=== PATIENT | male | born 1940 | race Caucasian/White ===

== ENCOUNTER → 2018-01-18 | Outpatient (REF) | payer MEDICARE ==
[~2018-01-18] MED LIST: HYDR-4309 PO; LORA-1455 PO
[2018-01-18 18:39] LABS: PLATELET COUNT, AUTOMATED 226 K/uL (150-450)
== END ==
PROVIDERS: ATTEND Physician Assistant Medical
DX: L97.509 Non-pressure chronic ulcer of other part of unspecified foot with unspecified severity (principal)
CPT/HCPCS: 82040; 82247; 82310; 82374; 82435; 82565; 82947; 83036; 84075; 84132; 84155; 84295; 84450; 84460; 84520; 85025; 85651; 86140

== ENCOUNTER 2018-03-07 10:00 | Outpatient (RCR) | payer MEDICARE ==
--- NOTE | 2018-01-23 15:58 | PT INITIAL EVALUATION ---
MEDICAL DIAGNOSIS: R) heel ulcer TREATMENT DIAGNOSIS: R) medial, plantar heel ulcer DATE OF ONSET: 01/21/18 SUBJECTIVE: The patient presents today with his son and a friend. He reports that he noticed the wound on his R) heel "3 days ago" and was then seen by Dr. Whitman. The patient has documentation of a R) heel x-ray completed on 01/18/18, so it is unclear as to the actual timeline of the current wound. The patient is unsure of how he sustained the wound, but does report sitting on his 4WW seat and propelling himself with his feet. The wound is currently covered with a bordered gauze dressing. REHAB PROBLEM LIST: Increased Pain, Open Wound PREVIOUS MEDICAL HISTORY: Pt reports no PMH, x-ray report from 01/18/18 indicates no signs of bony involvement OBJECTIVE: Sensation: Intact light touch sensation Other Objective Findings: Circumferential Measurements: R) calf: 31 cm R) ankle, superior to malleolus: 24.5 cm Wound Measurements: 0.8 cm L x 0.8 cm W x 0.2 cm D ASSESSMENT: Patient presents with a small ulcer on the medial portion of the R) plantar heel. Wound base demonstrates 95% slough with a small portion of darkened tissue present in the middle of wound base. The periwound skin demonstrates mild maceration. Firm wound margins palpated with tweezers. PT completed conservative, selective debridement of non-viable tissue and slough with tweezers to the depth of the subcutaneous tissue. Pt reports increased pain with debridement and therefore very little debridement was tolerated. PT cleansed the wound with sterile saline and gauze and then placed calcium alginate over the wound base followed by a silicone bordered dressing to assist with autolytic debridement. No s/s of infection present at this time. The patient will benefit from skilled PT wound care to include sharps debridement as well as advanced wound care product selection and application in order to facilitate wound healing and minimize risk of infection. The patient will return for f/u visit in 1 week. Short Term Goals 1: Pt to maintain clean, dry and intact dressing between wound care visits. 2: Wound base to demonstrate 100% granulation tissue with no s/s of infection. 3: Wound to gradually epithelialize from the edges inward and demonstrate full closure. 4: Pt to obtain proper offloading footwear as necessary to adequately offload the wound and facilitate wound healing. Patient's Goals: Wound healing PLAN: Patient to be seen for skilled PT wound care to include sharps debridement as well as advanced wound care product selection and application in order to facilitate wound healing and minimize risk of infection 1x/Week for up to 90 days. Thank you for this referral. If you have any questions, comments, or concerns about this report or plan, please contact me at . Linda Ferrera, PT, DPT [facility]
--- NOTE | 2018-03-07 14:42 | PT PLAN OF CARE ---
Physician: Dr. Whitman Patient is being seen: Eduardo Resendez Therapist: Linda Ferrera, PT, DPT Medical Diagnosis: R) heel ulcer Treatment Diagnosis: R) medial, plantar heel ulcer Date of Onset: 01/21/18 Date of Initial Evaluation: 01/23/18 Date patient was last seen: 03/07/18 Number of treatments: 5 Number of cancellations/No shows: 2 INTERVENTIONS: The patient was seen for skilled PT wound care to include conservative, selective sharps debridement as well as advanced wound care product selection and application. PT also provided education on the importance of proper foot maintenance to reduce risk of wound recurrence. GOALS: (all met) 1: Pt to maintain clean, dry and intact dressing between wound care visits. 2: Wound base to demonstrate 100% granulation tissue with no s/s of infection. 3: Wound to gradually epithelialize from the edges inward and demonstrate full closure. 4: Pt to obtain proper offloading footwear as necessary to adequately offload the wound and facilitate wound healing. (not needed) PATIENT'S GOAL: Wound Healing Status of Patient's Goals: Met Patient Compliance: Fair Prognosis: Good Reasons for continuing therapy: None at this time. Wound demonstrates 100% epithelization with no s/s of infection. Pt will be discharged from skilled PT wound care services. Thank you for this referral. If you have any questions, comments, or concerns about this report or plan, please contact me at . Linda Ferrera, PT, DPT [facility]
== END 2018-03-07 14:09 | disposition home or self-care (01) ==
LOC: PT 10:00
PROVIDERS: ATTEND Podiatrist Foot & Ankle Surgery
DX: L97.512 Non-pressure chronic ulcer of other part of right foot with fat layer exposed (principal)
CPT/HCPCS: 97161

== ENCOUNTER 2019-02-18 16:20 | Inpatient (IN) | payer MEDICARE ==
--- NOTE | 2019-02-18 16:31 | ER Report ---
History and Physical Time Seen By MD: 16:27 HPI/ROS CHIEF COMPLAINT: Exertional dyspnea HISTORY OF PRESENT ILLNESS: Patient is an 78-year-old male here with complaints of exertional dyspnea 3 days. Patient was seen by his family worker shortly prior to arrival and was found to be visibly short of breath especially with exertion. Patient is reportedly healthy at baseline, denies history of smoking, takes no medications. Patient is afebrile, tachypneic, somnolent which is a change from his baseline per family worker who is at bedside. REVIEW OF SYSTEMS: Constitutional: No fever, no chills. Eyes: No discharge. ENT: No sore throat. Cardiovascular: No chest pain, no palpitations. Respiratory: No cough, + significant exertional shortness of breath. Gastrointestinal: No abdominal pain, no vomiting. Genitourinary: No hematuria. Musculoskeletal: No back pain. Skin: No rashes. Neurological: No headache.+ Somnolent Allergies: Coded Allergies: No Known Drug Allergies (Unverified , 02/18/19) Home Meds Active Scripts Hydrocodone Bit/Acetaminophen (NORCO 5-325 TABLET) 1 Each Tablet, 1 EACH PO Q4-6H PRN for PAIN, #12 TAB Prov:BINTA JONES PREVENTIVE MEDICINE OFFICER 11/25/15 Lorazepam (ATIVAN) 0.5 Mg Tablet, 0.5 MG PO Q4-6H PRN for MUSCLE SPASMS, #12 TAB Prov:BINTA JONES PREVENTIVE MEDICINE OFFICER 11/25/15 Hx Smoking: No Smoking Status: Never Smoker Constitutional Vital Sign - Last 24 Hours 02/18/19 02/18/19 02/18/19 02/18/19 16:23 16:23 16:23 16:25 Temp 98.4 Pulse 71 70 Resp 28 23 B/P (MAP) 133/94 133/94 (107) Pulse Ox 83 88 O2 Delivery Room Air O2 Flow Rate 3.0 02/18/19 02/18/19 02/18/19 02/18/19 16:30 16:35 16:40 16:55 Pulse 70 73 67 69 Resp 26 28 24 26 Pulse Ox 91 92 91 02/18/19 02/18/19 02/18/19 16:56 17:00 17:59 Pulse 68 Resp 25 14 B/P (MAP) 108/92 (97) 122/95 (104) 92/64 (73) Pulse Ox 87 92 O2 Delivery Nasal Cannula O2 Flow Rate 4 Physical Exam General Appearance: Patient is somnolent, increased effort to breathe, moving all extremities. Eyes: Pupils equal and round no pallor or injection. ENT, Mouth: Mucous membranes are moist. Respiratory: Diminished breath sounds in left lung especially at the base, tachypnea Cardiovascular: Regular rate and rhythm. Gastrointestinal: Abdomen is soft and non tender, no masses, bowel sounds normal. Neurological: Somnolent, moving all extremities, cranial nerves intact Skin: Warm and dry, no rashes. Musculoskeletal: Neck is supple non tender. Extremities are nontender, nonswollen and have full range of motion. DIFFERENTIAL DIAGNOSIS: After history and physical exam differential diagnosis was considered for shortness of breath including but not limited to pulmonary infectious process, COPD, asthma, pulmonary embolus and congestive heart failure. Medical Decision Making Data Points Result Diagram: 02/18/19 1625 02/18/19 1625 Laboratory Hematology Test 02/18/19 16:25 White Blood Count 9.8 k/uL (4.5-11.0) Red Blood Count 5.06 M/uL (4.00-5.60) Hemoglobin 15.9 g/dL (14.0-18.0) Hematocrit 46.5 % (42.0-52.0) Mean Corpuscular Volume 92.0 fL (80.0-96.0) Mean Corpuscular Hemoglobin 31.5 pg (26.0-33.0) Mean Corpuscular Hemoglobin Concent 34.3 g/dL (32.0-36.0) Red Cell Distribution Width 13.5 % (11.5-14.5) Platelet Count 245 K/uL (150-450) Mean Platelet Volume 8.4 fL (7.2-11.1) Neutrophils (%) (Auto) 61.5 % (39.4-72.5) Lymphocytes (%) (Auto) 25.7 % (17.6-49.6) Monocytes (%) (Auto) 10.5 % (4.1-12.4) Eosinophils (%) (Auto) 1.5 % (0.4-6.7) Basophils (%) (Auto) 0.8 % (0.3-1.4) Nucleated RBC Relative Count (auto) 0.1 /100WBC Neutrophils # (Auto) 6.0 K/uL (2.0-7.4) Lymphocytes # (Auto) 2.5 K/uL (1.3-3.6) Monocytes # (Auto) 1.0 K/uL (0.3-1.0) Eosinophils # (Auto) 0.2 K/uL (0.0-0.5) Basophils # (Auto) 0.1 K/uL (0.0-0.1) Nucleated RBC Absolute Count (auto) 0.01 K/uL Chemistry Test 02/18/19 16:25 Sodium Level 140 mmol/L (137-145) Potassium Level 3.8 mmol/L (3.5-5.0) Chloride Level 110 mmol/L (98-107) Carbon Dioxide Level 21 mmol/L (22-30) Blood Urea Nitrogen 32 mg/dl (9-21) Creatinine 1.10 mg/dl (0.66-1.25) Glomerular Filtration Rate Calc > 60.0 Random Glucose 94 mg/dl (75-110) Lactate 1.3 mmol/L (0.7-2.1) Calcium Level 10.0 mg/dl (8.4-10.2) Total Bilirubin 0.8 mg/dl (0.2-1.3) Aspartate Amino Transf (AST/SGOT) 26 U/L (0-35) Alanine Aminotransferase (ALT/SGPT) 29 U/L (0-56) Alkaline Phosphatase 95 U/L (0-126) Troponin I 0.016 ng/ml B-Type Natriuretic Peptide 75 pg/ml (0-100) Total Protein 7.4 g/dl (6.3-8.2) Albumin 4.1 g/dl (3.5-5.0) Coagulation Test 02/18/19 16:25 Prothrombin Time 13.4 seconds (12.0-14.4) Prothromb Time International Ratio 1.02 Activated Partial Thromboplast Time 30 seconds (23-35) EKG/Imaging Imaging PATIENT NAME: Eduardo Resendez : 1940 MR: [id number] V: [id number] EXAM DATE: ORDERING PHYSICIAN: SKY SANCHEZ TECHNOLOGIST: Location: [facility] [place] Patient: Eduardo Resendez : 1940 Visit/Account:[id number] Date of Sevice: 02/18/2019 Exam type: CHEST SINGLE AP History: RESP DISTRESS Comparison: None. Findings: There is a large left-sided pneumothorax, measuring at least 60% with a mild [id number] mediastinal shift concerning for tension. The left main bronchus does not appear well aerated which may in part be related to extrinsic mass effect or possibly an intraluminal lesion. There Is airspace consolidation the medial left lower lobe likely atelectasis. Mild interstitial prominence is seen throughout the lungs. The cardiac silhouette is normal IMPRESSION: 1. Large left-sided pneumothorax measuring at least 60% with mild left right midline shift concerning for tension pneumothorax. Small amount of airspace consolidation in the medial left lower lobe, likely atelectasis Very little air is identified in the left main bronchus. This could be related to extrinsic mass effect or possibly an intraluminal lesion. CT the chest is recommended. Results were called to SKY SANCHEZ at 02/18/2019 5:02 PM. Report Dictated By: Inga Ferguson MD at 02/18/2019 5:01 PM Report E-Signed By: Inga Ferguson MD at 02/18/2019 5:07 PM PATIENT NAME: Eduardo Resendez : 1940 MR: [id number] V: [id number] EXAM DATE: ORDERING PHYSICIAN: SKY SANCHEZ TECHNOLOGIST: Location: [facility] [place] Patient: Eudardo Resendez : 1940 Visit/Account:[id number] Date of Sevice: 02/18/2019 EXAMINATION: Head CT without intravenous contrast HISTORY: TECHNIQUE: Contiguous axial images were obtained from the skull base to the vertex without intravenous contrast. Sagittal and coronal reformatted images are also submitted. Dose Lowering Technique One of the following dose optimization techniques was utilized in the performance of this exam: Automated exposure control; adjustment of the mA and/or kV according to the patient's size; or use of an iterative rec onstruction technique. Specific details can be referenced in the facility's radiology CT exam operational policy. COMPARISON: None. FINDINGS: Brain volume: There is moderate diffuse central cortical atrophy present Ventricles: Moderate central atrophy Acute ischemic changes: None. Hemorrhage: None. Masses / edema: None. Bettencourt-white: Negative. White matter: Normal. Vessels: There calcifications in the carotid siphons and the vertebral arteries and basilar artery Extra-axial: There appear to be several tiny droplets of air in the Calvarium / scalp: Negative. Skull base / visualized face: Negative. Visualized sinuses / orbits: There is soft tissue density material in the posterior ethmoid air cells on the right. Soft tissue density material also noted in the posterior left-sided the nasal vault. There are copious secretions within the nasopharynx which are incompletely imaged IMPRESSION: There are copious secretions within the nasopharynx which are incompletely imaged Small amount of abnormal soft tissue density material within the posterior left nasal vault and also in the posterior right ethmoid air cells Moderate diffuse central cortical atrophy Report Dictated By: Inga Ferguson MD at 02/18/2019 5:09 PM Report E-Signed By: Inga Ferguson MD at 02/18/2019 5:22 PM WSN:[email or web address] ED Course/Re-evaluation ED Course Patient is an 78-year-old male here with complaints of increasing shortness balbir th especially with exertion, diminished breath sounds in the left lung patiño. Patient was found to have a large left pneumothorax, borderline tension. I discussed the need to place a chest tube with the patient and the patient's family worker and the patient voiced understanding. A thoravent was placed in the left upper chest however to cannula kinked so this was replaced with another thora-Vent with positive evacuation of air. Device was connected to an atrium. Follow-up chest x-ray showed significant reexpansion of the left lung. I discussed the patient with Dr. Matias the surgery who accepted the patient to his service. CT imaging of the chest was completed to evaluate for the etiology of the pneumothorax as there is no history of trauma or history of malignancy. Patient was given ketamine, Versed, fentanyl for sedation for the procedure. Patient was hemodynamically stable at time of admission. Procedure Thoravent Placement: Left-sided pneumothorax was identified. Patient was cleaned using chlorhexidine, and 11 blade was used to make the skin surface, cannula intracoronary advancement to the thoracic cavity. A thoravent was placed in the left upper chest however to cannula kinked so this was replaced with another thora-Vent with positive evacuation of air. Device was connected to an atrium. Patient tolerated procedure well. Patient was sedated for this procedure using ketamine, fentanyl, Versed. Respiratory effort improved significantly. Decision to Disposition Date: Feb 18, 2019 Decision to Disposition Time: 18:03 Depart Departure Latest Vital Signs Vital Signs Date Time Temp Pulse Resp B/P (MAP) Pulse Ox O2 Delivery O2 Flow Rate FiO2 02/18/19 17:59 14 92/64 (73) 92 Nasal Cannula 4 02/18/19 17:00 68 02/18/19 16:23 98.4 Impression: Primary Impression: Pneumothorax Condition: Improved Disposition: Admitted from ER SKY SANCHEZ DO Feb 18, 2019 16:31
[2019-02-18 16:47] LABS: PLATELET COUNT, AUTOMATED 245 K/uL (150-450)
[2019-02-18 16:56] LABS: INR 1.02
[2019-02-18] MEDS ORDERED: fentaNYL CITR 100 MCG/2 ML AMP IVP ONE (17:15)
[2019-02-18] MEDS ORDERED: MIDAZOLAM 10 MG/2 ML VIAL IVP ONE (17:15)
[2019-02-18] MEDS ORDERED: KETAMINE HCL 500 MG/5 ML VIAL IVP ONE (17:15)
--- NOTE | 2019-02-18 17:15 | RADIOLOGY IMAGING REPORT ---
FACILITY: [facility] [place] PATIENT NAME: Eduardo Resendez : 1940 MR: [id number] V: [id number] EXAM DATE: ORDERING PHYSICIAN: SKY SANCHEZ TECHNOLOGIST: Location: [facility] Patient: Eduardo Resendez : 1940 Visit/Account:[id number] Date of Sevice: 02/18/2019 Exam type: CHEST SINGLE AP History: RESP DISTRESS Comparison: None. Findings: There is a large left-sided pneumothorax, measuring at least 60% with a mild [id number] mediastina l shift concerning for tension. The left main bronchus does not appear well aerated which may in par t be related to extrinsic mass effect or possibly an intraluminal lesion. There Is airspace consolid ation the medial left lower lobe likely atelectasis. Mild interstitial prominence is seen throughout the lungs. The cardiac silhouette is normal IMPRESSION: 1. Large left-sided pneumothorax measuring at least 60% with mild left right midline shift concernin g for tension pneumothorax. Small amount of airspace consolidation in the medial left lower lobe, likely atelectasis Very little air is identified in the left main bronchus. This could be related to extrinsic mass eff ect or possibly an intraluminal lesion. CT the chest is recommended. Results were called to SKY SANCHEZ at 02/18/2019 5:02 PM. Report Dictated By: Inga Ferguson MD at 02/18/2019 5:01 PM Report E-Signed By: Inga Ferguson MD at 02/18/2019 5:07 PM WSN:[email or web address]
--- NOTE | 2019-02-18 17:29 | RADIOLOGY IMAGING REPORT ---
[place] [facility] [place]IENT NAME: Eduardo Resendez : 1940 MR: [id number] V: [id number] EXAM DATE: ORDERING PHYSICIAN: SKY SANCHEZ TECHNOLOGIST: Location: [facility] Patient: Eduardo Resendez : 1940 Visit/Account:[id number] Date of Sevice: 02/18/2019 EXAMINATION: Head CT without intravenous contrast HISTORY: TECHNIQUE: Contiguous axial images were obtained from the skull base to the vertex without intraven ous contrast. Sagittal and coronal reformatted images are also submitted. Dose Lowering Technique One of the following dose optimization techniques was utilized in the performance of this exam: Autom ated exposure control; adjustment of the mA and/or kV according to the patient's size; or use of an i terative reconstruction technique. Specific details can be referenced in the facility's radiology C T exam operational policy. COMPARISON: None. FINDINGS: Brain volume: There is moderate diffuse central cortical atrophy present Ventricles: Moderate central atrophy Acute ischemic changes: None. Hemorrhage: None. Masses / edema: None. Bettencourt-white: Negative. White matter: Normal. Vessels: There calcifications in the carotid siphons and the vertebral arteries and basilar artery Extra-axial: There appear to be several tiny droplets of air in the Calvarium / scalp: Negative. Skull base / visualized face: Negative. Visualized sinuses / orbits: There is soft tissue density material in the posterior ethmoid air cell s on the right. Soft tissue density material also noted in the posterior left-sided the nasal vault. There are copious secretions within the nasopharynx which are incompletely imaged IMPRESSION: There are copious secretions within the nasopharynx which are incompletely imaged Small amount of abnormal soft tissue density material within the posterior left nasal vault and also in the posterior right ethmoid air cells Moderate diffuse central cortical atrophy Report Dictated By: Inga Ferguson MD at 02/18/2019 5:09 PM Report E-Signed By: Inga Ferguson MD at 02/18/2019 5:22 PM WSN:[email or web address]
[2019-02-18] MEDS ORDERED: NS(*) 0.9% 1000 ML BAG 1,000 ML IV ONE (18:05)
[2019-02-18] MEDS ORDERED: NS(*) 0.9% 50 ML BAG 50 ML ONE (18:09)
[2019-02-18] MEDS ORDERED: IOPAMIDOL 76% 100 ML INFUS BTL 100 ML ONE (18:09)
--- NOTE | 2019-02-18 18:12 | RADIOLOGY IMAGING REPORT ---
FACILITY: [facility] PATIENT NAME: Eduardo Resendez : 1940 MR: [id number] V: [id number] EXAM DATE: ORDERING PHYSICIAN: SKY SANCHEZ TECHNOLOGIST: Location: [facility] Patient: Eduardo Resendez : 1940 Visit/Account:[id number] Date of Sevice: 02/18/2019 ADDENDUM #1 ADDENDUM: IMPRESSION: 1. Left pneumothorax continues to expand, now with tension despite chest tube Report Dictated By: Cristhian Oneil MD at 02/18/2019 6:38 PM Report E-Signed By: Cristhian Oneil MD at 02/18/2019 6:38 PM ORIGINAL REPORT CHEST SINGLE AP Indication: chest tube placement Comparison: 02/18/2019 4:50 PM Findings: Interval placement of a left-sided chest tube. Cardiomediastinal silhouette: Increasing right lateralization of the mediastinum. Lungs: Decreased aeration of the right lung with compressive atelectatic changes. Advanced emphysemat ous changes on the left. Left pneumothorax continues to expand, now attention despite chest tube. IMPRESSION: 1. Left pneumothorax continues to expand, now attention despite chest tube Report Dictated By: Cristhian Oneil MD at 02/18/2019 6:03 PM Report E-Signed By: Cristhian Oneil MD at 02/18/2019 6:05 PM WSN:[id number]
--- NOTE | 2019-02-18 18:51 | RADIOLOGY IMAGING REPORT ---
FACILITY: [facility] PATIENT NAME: Eduardo Resendez : 1940 MR: [id number] V: [id number] EXAM DATE: ORDERING PHYSICIAN: SKY SANCHEZ TECHNOLOGIST: Location: [facility] Patient: Eduardo Resendez : 1940 Visit/Account:[id number] Date of Sevice: 02/18/2019 CT CTA CHEST W & W/O CON HISTORY: Pneumothorax TECHNIQUE: CTA chest with intravenous contrast attention to pulmonary arteries. Sagittal, coronal a nd slab 3D MIP coronal reconstructed images were also created for further evaluation and interpretati on. One of the following dose optimization techniques was utilized in the performance of this exam: Autom ated exposure control; adjustment of the mA and/or kV according to the patient's size; or use of an i terative reconstruction technique. Specific details can be referenced in the facility's radiology CT exam operational policy. CONTRAST: 75 mL Isovue 370 COMPARISON: Radiograph 02/18/2019 FINDINGS: Lungs:: Left anterior approach intercostal chest tube tip abuts the lateral wall of the mediastinum. It does not appear to transverse the visceral pleura. The lungs are extremely emphysematous. There a re traction adhesive changes to the left parietal pleura. Mediastinal shift is subjectively resolved. Heart, milad and aorta:: Heart is not enlarged. Great vessels follow normal course and caliber. Pulmonary arteries:Opacification of pulmonary arteries is excellent. There are no filling defects enrique ntified within the pulmonary arteries. Pleura:: Small to moderate left pneumothorax. No pleural fluid Chest wall: Emphysematous changes overlie the left chest wall extending to the base of the neck Visualized upper abdomen: Fatty pancreas Bones: Negative. IMPRESSION: Left pneumothorax with chest tube in place. Tension appears to be resolving when compared to most rec ent radiograph. Chest tube projects within the intrapleural space at those however about the soft tis sues of the mediastinum and does not appear to transgress visceral pleura. No pulmonary embolism Severely emphysematous lungs Report Dictated By: Cristhian Oneil MD at 02/18/2019 6:37 PM Report E-Signed By: Cristhian Oneil MD at 02/18/2019 6:43 PM WSN:[id number]
--- NOTE | 2019-02-18 18:58 | EKG ---
[place] [facility] [place] ROSEMARIE LEON : [id number] MR: [id number] V: [id number] EXAM DATE: ORDERING PHYSICIAN: SKY SANCHEZ TECHNOLOGIST: DEBBI Test Reason : SOB Blood Pressure : / mmHG Vent. Rate : 068 BPM Atrial Rate : 068 BPM P-R Int : 156 ms QRS Dur : 074 ms QT Int : 440 ms P-R-T Axes : 066 033 069 degrees QTc Int : 467 ms Normal sinus rhythm Normal ECG No previous ECGs available Confirmed by SURY ORDOÑEZ ([id number]) on 02/18/2019 8:09:51 PM Referred By: LAURA Confirmed By:SURY ORDOÑEZ
[2019-02-18] MEDS ORDERED: ACETAMINOPHEN 325 MG TAB PO PRN (20:55)
[2019-02-18] MEDS ORDERED: traMADol 50 MG TAB PO PRN (20:55)
[2019-02-18 22:55] VITALS: BP 121/85
[2019-02-19 03:24] VITALS: BP 119/65
--- NOTE | 2019-02-19 06:53 | RADIOLOGY IMAGING REPORT ---
FACILITY: [facility] PATIENT NAME: Eduardo Resendez : 1940 MR: [id number] V: [id number] EXAM DATE: ORDERING PHYSICIAN: ARIELLE PHILIP TECHNOLOGIST: Location: [facility] [place] Patient: Eduardo Resendez : 1940 Visit/Account:[id number] Date of Sevice: 02/19/2019 CHEST SINGLE AP Additional pertinent History: None COMPARISON STUDIES: 02/18/2019 FINDINGS: Support lines and catheters: Small bore chest tube seen in the medial aspect of the left midlung. Lungs and Pleura: When compared to the previous chest x-ray there is been continued expansion of th e left lung with just a small 6 mm pneumothorax seen along the left apex. There is a generalized incr eased interstitial lung change in the reexpanded left upper lung. Heart and vasculature: Negative. Kita and Mediastinum: Negative. Bones and Chest wall: Subcutaneous emphysematous changes noted along the left chest wall. Upper Abdomen: Negative. IMPRESSION: 1. Reexpansion of the left lung with just minimal apical pneumothorax. Slight increased interstitial lung change in the left upper lung which may be related to reexpansion pulmonary edema. Subcutaneous emphysematous changes along the left chest wall. Report Dictated By: Nelson Mccain MD at 02/19/2019 6:35 AM Report E-Signed By: Nelson Mccain MD at 02/19/2019 6:45 AM WSN:[id number]
[2019-02-19 07:07] VITALS: BP 123/66
--- NOTE | 2019-02-19 07:23 | Gen Surgery History & Physical ---
History of Present Illness Chief Complaint sob, chest pain History of Present Illness 78 yo m presented to er with sob and chest pain. sob with exertion for 3 days. found to have pneumothorax and catheter placed. no h/o cigs. no previous pneu mothorax. now feels fine. no sob. History Home Meds Discontinued Scripts Hydrocodone Bit/Acetaminophen (NORCO 5-325 TABLET) 1 Each Tablet, 1 EACH PO Q4- 6H PRN for PAIN, #12 TAB Prov:BINTA JONES NEONATAL PEDIATRIC NURSE 11/25/15 Lorazepam (ATIVAN) 0.5 Mg Tablet, 0.5 MG PO Q4-6H PRN for MUSCLE SPASMS, #12 TAB Prov:BINTA JONES NEONATAL PEDIATRIC NURSE 11/25/15 Allergies: Coded Allergies: No Known Drug Allergies (Unverified , 02/18/19) Review of Systems Constitutional: Other (per hpi) Exam General Appearance: Alert, Awake, No Acute Distress, Afebrile Neuro: No Gross deficits Eyes: Other (per, eomi) Cardiovascular: Other (reg rate) Respiratory: No Respiratory Distress GI: Other (abd soft) Extremities: Other (scds) Integumentary: Skin Intact without Lesion / Mass Psych: Alert & Oriented X3, Appropriate Mood & Affect Medical Decision Making Data Points Result Diagram: 02/18/19 1625 02/18/19 1625 Assessment and Plan Problems: (1) Pneumothorax Status: Acute Assessment & Plan: 02/19/19: ptx resolving. cont on suction for now. oob to chair. reg diet. Venous Thromboembolism Antithrombotics Is Pt On Any Antithrombotics?: No ARIELLE PHILIP Feb 19, 2019 07:23
[2019-02-19] MEDS: NS(*) 0.9% 1000 ML BAG 1,000 ML IV PRN ×2 (07:34→16:54)
[2019-02-19 11:03] VITALS: BP 98/61
[2019-02-19 15:56] VITALS: BP 115/60
[2019-02-19 19:46] VITALS: BP 111/75
[2019-02-19 23:59] VITALS: BP 123/78
[2019-02-20 03:21] VITALS: BP 134/74
--- NOTE | 2019-02-20 06:32 | RADIOLOGY IMAGING REPORT ---
FACILITY: [facility] - [place], [place] PATIENT NAME: Eduardo Resendez : 1940 MR: [id number] V: [id number] EXAM DATE: ORDERING PHYSICIAN: ARIELLE PHILIP TECHNOLOGIST: Location: [facility] - [place] Patient: Eduardo Resendez : 1940 Visit/Account:[id number] Date of Sevice: 02/20/2019 Portable chest: Indication: Follow-up evaluation of pneumothorax. Technique: A single frontal film was obtained. Comparison: 02/19/2019 Lines and tubes: Unchanged. Skeletal and soft tissue structures: There is persistent subcutaneous emphysema in the left chest wal l. Heart and mediastinum: Within normal limits. Lung patiño: No focal opacity or consolidation. Pleural spaces: There is a persistent tiny left apical pneumothorax. There is no significant effusion . Impression: Persistent tiny left pneumothorax. No significant change. Report Dictated By: Bonifacio Gonsalves MD at 02/20/2019 6:22 AM Report E-Signed By: Bonifacio Gonsalves MD at 02/20/2019 6:24 AM WSN:[id number]
[2019-02-20 06:55] VITALS: BP 133/71
--- NOTE | 2019-02-20 07:39 | General Surgery Progress Note ---
Subjective Progress Notes Subjective doing well. no sob. Physical Exam Vital Signs Date Time Temp Pulse Resp B/P (MAP) Pulse Ox O2 Delivery O2 Flow Rate FiO2 02/20/19 06:55 97.9 50 20 133/71 (91) 96 Nasal Cannula 1.5 Intake and Output 02/20/19 07:03 Intake Total 2127 ml Output Total 28 ml Balance 2099 ml Intake Oral 180 ml IV Total 1947 ml Output Chest Tube Drainage Total 28 ml # Voids 4 # Bowel Movements 2 General Appearance: No Acute Distress Respiratory: No Respiratory Distress Result Diagram: 02/18/19 1625 02/18/19 1625 Assessment and Plan Problems: (1) Pneumothorax Status: Acute Assessment & Plan: 02/19/19: ptx resolving. cont on suction for now. oob to chair. reg diet. 02/20/19: doing well. no increase in ptx on waterseal. will clamp ngt and get xray in 4 hrs. hliv. Exam Sepsis Risk: No Definite Risk ARIELLE PHILIP Feb 20, 2019 07:39
--- NOTE | 2019-02-20 09:36 | NUR ---
Physical Therapy Impression Pt is fairly resistant to providing any information or participating in dressing skill check etc. Pt does have a CG, as noted in chart and she arrived during treatment to bring pt a breakfast sandwich. Pt became somewhat agitated with gait belt placement and with request to place sandwich on table in order to ambulate. Pt then hid sandwich under a bag before being agreeable to ambulate with therapy. For transfers, Min assist of OT to manage lines and W/C follow, Mod assist by PT for sit to stand as pt is fairly retropulsive initially and did not scoot forward in chair prior to attempting to stand. During ambulation pt indicates that he does have a walker at home and describes it possibly as a 4WW with seat. Pt tends to vear toward the right and brush along the R) wall during gait trng in hallway. When an obstacle is encountered on the R), pt does self correct to avoid this, but not until he is nearly in contact with it. Pt requires guidance and redirection due to possible cognitive limitations in order to path find his way back to the room and complete a 180 degree turn in hallway. Pt was then encouraged to don/doff clothing, either don his own pants or don/doff current house slippers and socks in order to evaluate his safety, balance and indep with this skill. Pt refused to allow PT/OT to observe this skill but then attempted to get them and put pants on after therapy departure. Pt was left with MILK WAGON DRIVER in room and therapy providing report to nursing staff. Recommend BUSINESS PLANNING MANAGER evaluation for any potential cognitive limitations. Pt became rather agitated at times with questions from PT thus a full environmental discussion was not completed. From a functional mobility stand point, pt would certainly benefit from further rehab to address strength, balance and safety with ADL'. Recommend supported living environment for improved safety, such as assisted living with [facility] services. Defer to BUSINESS PLANNING MANAGER for recommendations regarding memory care or traditional DE. Physical Therapy Goals 1. Pt to be Mod indep for sit to/from stand transfers 2. Pt to be Mod indep for sit to/from supine and bed mobility 3. Pt to ambulate 100' with least restrictive device and SBA/Mod indep Patient's Goals
--- NOTE | 2019-02-20 11:52 | NUR ---
Occupational Therapy Impression Pt resistant to providing much history on PLOF, becoming agitated when encouraged to address possible services needed. Mod Ax1 sit<>stand with cues for sequencing. Min A ambulation with RW and w/c follow (see PT note). Pt adamantly refusing engagement in ADL assessment (dressing/toileting). Occasional cues required for safety and sequencing. Recommend speech evaluation for cognition. Pt would likely benefit from supervised living (SKILLED NURSING) and for continued strengthening. Occupational Therapy Goals 1) Pt will be SBA UB/LB dressing. 2) Pt will be SBA toilet task. 3) Pt will be SBA grooming/hygiene standing. Patient's Goal
[2019-02-20 12:48] VITALS: BP 126/69
--- NOTE | 2019-02-20 14:16 | RADIOLOGY IMAGING REPORT ---
[facility] PATIENT NAME: Eduardo Resendez : 1940 MR: [id number] V: [id number] EXAM DATE: ORDERING PHYSICIAN: ARIELLE PHILIP TECHNOLOGIST: Location: [facility] - [place] Patient: Eduardo Resendez : 1940 Visit/Account:[id number] Date of Sevice: 02/20/2019 Single view of the chest Indication: PTX Comparison: X-ray examination of the chest from earlier today. Findings: Similar amount of subcutaneous emphysema is seen on the left are left-sided chest tube is seen. Ther e is a small/tiny left apical pneumothorax appreciated, unchanged. Subtle blunting is seen of left c ostophrenic sulcus indicative of layering fluid or blood. No acute bony finding. IMPRESSION: 1. Compared to earlier examination, no significant change with tiny left apical pneumothorax. Left s ided chest tube in place. Report Dictated By: Harris Hayes MD at 02/20/2019 2:05 PM Report E-Signed By: Harris Hayes MD at 02/20/2019 2:07 PM WSN:[id number]
[2019-02-20 15:46] VITALS: BP 146/81
[2019-02-20 19:42] VITALS: BP 137/97
[2019-02-21 07:22] VITALS: BP 131/78
--- NOTE | 2019-02-21 07:45 | General Surgery Progress Note ---
Subjective Progress Notes Subjective no acute events Physical Exam Vital Signs Date Time Temp Pulse Resp B/P (MAP) Pulse Ox O2 Delivery O2 Flow Rate FiO2 02/21/19 07:22 97.8 56 16 131/78 (95) 96 Nasal Cannula 0.5 Intake and Output 02/21/19 07:03 Intake Total 360 ml Output Total 17 ml Balance 343 ml Intake Oral 360 ml Output Chest Tube Drainage Total 17 ml # Voids 5 # Bowel Movements 2 General Appearance: No Acute Distress Respiratory: No Respiratory Distress Result Diagram: 02/18/19 1625 02/18/19 1625 Assessment and Plan Problems: (1) Pneumothorax Status: Acute Assessment & Plan: 02/19/19: ptx resolving. cont on suction for now. oob to chair. reg diet. 02/20/19: doing well. no increase in ptx on waterseal. will clamp ngt and get xray in 4 hrs. hliv. 02/21/19: doing well. no increase in ptx with tube clamped. i removed chest tube. to ecf today. Exam Sepsis Risk: No Definite Risk ARIELLE PHILIP Feb 21, 2019 07:45
--- NOTE | 2019-03-04 07:10 | Hospitalist Depart ---
Discharge Summary Reason for Hosp/Final Diag: (1) Pneumothorax Status: Acute Hospital Course & Plan: 02/19/19: ptx resolving. cont on suction for now. oob to chair. reg diet. 02/20/19: doing well. no increase in ptx on waterseal. will clamp ngt and get xray in 4 hrs. hliv. 02/21/19: doing well. no increase in ptx with tube clamped. i removed chest tube. to ecf today. Departure Weight (Pounds): 175 Condition: Improved Discharge Instructions Home Meds No Active Prescriptions or Reported Meds Diet: Regular Activity: As Tolerated, With Walker Special Instructions: d/c to extended care Venous Thromboembolism Antithrombotics Is Pt On Any Antithrombotics?: No ARIELLE PHILIP Mar 04, 2019 07:10
== END 2019-02-21 10:45 | DRG 201 ==
LOC: ER 16:40 → MED 19:09
PROVIDERS: ADMIT Surgery; ATTEND Surgery
PROC: 0W9B30Z Drainage of Left Pleural Cavity with Drainage Device, Percutaneous Approach (ICD-10-PCS; principal; 2019-02-18)
DX: J93.9 Pneumothorax, unspecified (principal)
CPT/HCPCS: 32554; 70450; 71045; 71275; 82040; 82247; 82310; 82374; 82435; 82565; 82803; 82947; 83605; 83880; 84075; 84132; 84155; 84295; 84450; 84460; 84484; 84520; 85025; 85610; 85730; 87040; 93005; 96361; 96374; 96375; 97162; 97166; 99285; A7048; J2250; J3010; J7030; J7050; Q9967

== ENCOUNTER → 2019-02-18 | Outpatient (CLI) | payer MEDICARE ==
[~2019-02-18] MED LIST changes: -HYDR-4309 PO; +HYDR-653 PO
== END ==
LOC: AMB 15:48
PROVIDERS: ATTEND Nurse Practitioner
DX: R06.02 Shortness of breath (principal)
CPT/HCPCS: A0425; A0427

== ENCOUNTER 2019-02-21 10:45 | Inpatient (IN) | payer MEDICARE ==
[~2019-02-21] VITALS: Ht 177.8 cm; Wt 70.6 kg
[2019-02-21 10:50] VITALS: BP 124/80
[2019-02-21] MEDS ORDERED: ACETAMINOPHEN 325 MG TAB PO PRN (11:05)
[2019-02-21] MEDS ORDERED: traMADol 50 MG TAB PO PRN (11:05)
--- NOTE | 2019-02-21 11:11 | Consultant Pharmacy Review ---
History Instructor Review Medication Review Do All Mecications have a Diag: Yes Pneumococcal Vaccine HX Pneumo Vac ([id number]): No Comments Regarding the Review NO CONCERNS FOR MEDICATIONS AT THIS TIME HE IS ONLY ON TRAMADOL AND ACETAMINOPHEN. WILL ADDRESS PNEUMONIA VACCINE STATUS WITH ECF NURSING. Notified? Notified?: No FAUSTO MONZON Feb 21, 2019 11:11
--- NOTE | 2019-02-21 13:53 | NUR ---
LT101 requested for admission, as pt is applying for Medicaid.
--- NOTE | 2019-02-21 14:02 | NUR ---
Illiteracy, confusion Patient refused many of the admission assessment questions, so some information was provided by his caregiver, Yang Kerr. She believes that patient is illiterate, as she reported that she has cared for him daily for the last two years and he always had her read his mail to him. He appears quite confused to the situation, has told staff that, "I have to meet somebody downstairs," but could not tell us who or for what reason. Yang suggested to us to tell patient that, if he does not cooperate with answering questions or participate with the therapists that we should advise him that we will be reporting this to his son Wilner, who has POA and who is arranging for pt's admission to [facility].
--- NOTE | 2019-02-21 14:08 | NUR ---
Physical Therapy Impression PT ECF eval complete. Pt very resistant to participate in PT interventions, requiring strong encouragement. Pt minimally receptive to PT instruction throughout session. CGA for STS transfers with cues for hand placement. CGA ambulation x150' with RW, and cues for proximity to walker. Pt will benefit from skilled PT services in order to increase tolerance to functional mobility and improve safety prior to d/c to [place]. Physical Therapy Goals 1: Pt to complete bed mobility with Parish 2: Pt to complete transfers with SBA and RW 3: Pt to ambulate 150' with SBA and RW 4: Pt to continuous pickling line pickler object from floor with CGA 5: Pt to ambulate 10' on sloped surface with CGA and RW Patient's Goals
--- NOTE | 2019-02-21 14:48 | OT ECF NOTE ---
Type of Note: Initial Note Primary Medical Diagnosis: Generalized weakness s/p hospital admission for pneumothorax Occupational Therapy Evaluation Date: 02/21/19 SUBJECTIVE: Prior Hospitalization: [facility] 02/18/19-02/21/19 Prior Level of Function: Pt resistant to share details regarding PLOF. Frequently stating "I don't know." Per current staff, pt has a caregiver that assists 1x/day. Pt may have used a 4WW at baseline. Prior Living Status: Senior housing-Son is patient's POA and reports he has arranged for [facility] Community Services: No known needs Home Accessibility: All needs on one level, Walk-in shower Equipment Owned: Rollator Medical Complications/Past Medical History: Please refer to EMR Psychosocial Support: Son resides in [place], is POA and assisting with transition to [facility] Pain Scale (0-10): None reported at time evaluation OBJECTIVE: Strength: MMT: Right Left Shoulder Flexion WFL WFL Elbow Flexion WFL WFL Wrist Extension WFL WFL Straightening Roll Operator WFL WFL (5= normal, 4= good, 3= fair, 2= poor, 1= trace) ROM: Both upper extremities, WFL Sensation: No paraesthesia reported Functional Transfer: Assistive Device: Front wheeled walker, Gait belt Transfer Ability: SBA, CGA. CGA provided due to pt's impulsivity and difficulty redirecting. ADL: Upper body dressing: Assistive device: Upper body dressing ability: N/T Lower body dressing: Assistive device: None Lower body dressing ability: Set-up donning slippers sitting unsupported EOB Toileting: Assistive device: Toileting ability: N/T Grooming/hygiene: Assistive device: Grooming ability: N/T Bathing: Assistive device: Bathing ability: N/T Standardized Assessment: Misha Index of Activities of Daily Livin/20 upon initial evaluation (02/21/19). ASSESSMENT: Mr. Resendez presents to [facility] [place] [place] with generalized weakness s/p hospital admission. He will benefit from skilled OT services to ensure appropriate tolerance for ADLs prior to discharge to [facility]. Problem List/Current Limitations: Generalized weakness Poor safety awareness Decreased attention Decreased initiation Short Term Goals: 1) Pt will be SBA toilet task. 2) Pt will be SBA grooming/hygiene standing. 3) Pt will be Independent with upper body HEP. 4) Pt will be Independent LB dressing. Bottom Stop Attacher Goals: Discharge to supervised living with services Patient Goals: Not addressed Rehabilitation Prognosis: Good Barriers to Discharge: Pt motivation and engagement in tasks PLAN: The patient will benefit from skilled occupational therapy services 5 times per week for 2 weeks including: Ther ex ADL training Safety training Ther act IADL training Transfer training Adaptive equip training Bed mobility Energy conservation Thank you for this referral. If you have any questions, concerns, or comments about this report or plan, please contact me at . Cindy Norris MS, OTR/L Occupational Therapist SRINIVAS
--- NOTE | 2019-02-21 15:19 | PT ECF NOTE ---
Type of Note: Initial Note Primary Medical Diagnosis: Weakness, pneumothorax Physical Therapy Evaluation Date: 02/21/19 SUBJECTIVE: Prior Hospitalization: [facility] 02/18/19-02/21/19 Prior Level of Function: Pt refuses to give any information about PLOF, per EMR and other staff reports, pt was living in Senior Housing and using a walker for mobility. Plan for the pt to d/c to [facility]. Prior Living Status: Senior housing Community Services: No known needs Home Accessibility: All needs on one level Equipment Owned: Rollator Medical Complications/Past Medical History: See EMR Psychosocial Support: Son, "Fuad" is POA Pain Scale (0-10): Pt reports "I don't know" OBJECTIVE: Strength: Pt refused ROM: WFL Sensation: Unknown, pt reports "no" to all inquiries Bed Mobility: Pt up in chair Transfers: CGA with RW Gait: CGA with RW x150' Stairs: NT ASSESSMENT: PT ECF eval complete. Pt very resistant to participate in PT interventions, requiring strong encouragement. Pt minimally receptive to PT instruction throughout session. CGA for STS transfers with cues for hand placement. CGA ambulation x150' with RW, and cues for proximity to walker. Pt will benefit from skilled PT services in order to increase tolerance to functional mobility and improve safety prior to d/c to [facility]. Problem List/Current Limitations: Decreased activity mateo Decreased strength Decreased ROM Decreased balance Poor safety awareness Decreased problem solving Lack of motivation Confusion Short Term Goals: 1: Pt to complete bed mobility with Parish 2: Pt to complete transfers with SBA and RW 3: Pt to ambulate 150' with SBA and RW 4: Pt to leaf size picker object from floor with CGA 5: Pt to ambulate 10' on sloped surface with CGA and RW Medical Records Tech Goals: Pt to d/c to [place] with decreased need of assistance from others. Patient Goals: Non expressed Rehabilitation Prognosis: Fair Barriers for Discharge: Pt very resistant to participation in PT interventions. PLAN: The patient will benefit from skilled physical therapy services 5 times per week for 2 weeks including: Therapeutic Exercise Therapeutic Activities Transfer Training Stair Training Manual Therapy Safety Training Neuromuscular Re-educ. Pt/Caregiver Training Bed Mobility Thank you for this referral. If you have any questions, concerns, or comments about this report or plan, please contact me at . Linda Ferrera, PT, DPT MTDD
[2019-02-21 15:25] VITALS: BP 124/72
--- NOTE | 2019-02-21 15:50 | NUR ---
Cueing Pt needs alot of reminder queing Such as : Washing hands, wiping after using the restroom, keeping the walker close and where he said he wanted to go. Pt does not use pull cord while in restroom. ( I stay close and check frequently)
--- NOTE | 2019-02-21 19:22 | NUR ---
Patient resting in bed voices no c/o of any, just wanting to go to bed refusing any hs cares, call light placed within reach of patient .
[2019-02-22 07:35] VITALS: BP 139/76
--- NOTE | 2019-02-22 11:20 | NUR ---
ST attempted evaluation. The patient was largely uncooperative. He frequently responded with "I don't know" to direct questions and was non-responsive to general comments. Pt used the room's communication board to report that the date was the . However, he did not cooperate with requests for the current month and year, responding with "I don't know" and "you tell me". When provided with a multiple choice option (e.g., "Would you guess it's a summer or winter month?"), the patient responded with, "Ya, it's one of those." Similar exchanges occurred on topics such as his family and personal interests. The patient did report that he lives on only [address] from [facility] which is consistent with the information in his medical record. It was sometimes unclear if the patient did not know the requested information or simply did not want to participate. 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 The patient became increasingly agitated and told the PLANNING LEAD to "Quit asking so many questions." PLANNING LEAD explained to the patient that she and others at the hospital were trying to get to know him a little better so that we could help him get home faster. Patient was asked if he would be willing to work with physical therapy to increase strength, allowing him to return home sooner. The patient responded, "I don't know" and told the PLANNING LEAD to, "Get out of here." When asked if the clinician could come back and see him on Sunday he responded, "No. I won't be here on Sunday." ST will attempt to evaluation the patient again on Sunday or Sunday of next week.
[2019-02-22 14:15] VITALS: BP 113/71
--- NOTE | 2019-02-22 14:58 | Medical Nutrition Therapy ---
Nutrition Anthropometrics Height (Inches): 70 (stated) Weight (Pounds): 155 Weight (Calculated Kilograms): 70.562 Yuan Nutrition Score: Adequate Yuan Nutrition Risk Score: 19 Dietary Referral Nutrition Risk Factors: Nutrition Risk Comment: Pt uncooperative, won't say Physical Findings Physical Appearance: WNR Skin Appearance Skin Appearance: Edema Edema Location Modifier: Both Edema Location: Leg Type of Edema: Degree of Edema: Gastrointestinal Symptoms GI Symtoms: Change in Bowel Pattern Tube Present: Bowel Sounds: Recent Bowel Pattern: Stool Characteristics: Nutritional Diagnosis Nutritional Risk Acuity 3: Fair Appetite Nutritional Acuity: 3-Mild Energy Requirement: 1848 (MSJ) Protein Requirement: 70 (1gm/kg) Fluid Requirement: 1750 (25ml/kg) Diet Type: Diet as Tolerated JASON/REG Nutrition Intervention: Cont diet as ordered, HS snack, Between meal supplement Food Likes: half white bread turkey only sandwich/vanilla ice cream/tater tots Diet Comment To RSA: OFFER NUTR SUPPLMENT Nutrition Monitoring & Eval Nutrition Goals: Eat 75-100% Meal, Drink > 1500 cc/day RD Patient Assessment Time: [address] Assessment Type: RD Assessment Patient Nutrition Acuity: 3-Mild Follow Up Date: Feb 28, 2019 Nutritional Comment: 02/22 Pt admitted s/p npneumothorax. Pt on JASON. Intake average 70% of small portions. Will offer nutr supplment to increase kcal and protein intake. No accurate pre-admit wt. Ht is stated. Alb 4.1, K+ 3.8 Will cont to monitor and encourage intake. IRINA INIGUEZ Feb 22, 2019 14:58
[2019-02-23 08:30] VITALS: BP 148/69
--- NOTE | 2019-02-23 09:49 | General Surgery Progress Note ---
Subjective Progress Notes Subjective pt says he feels fine but wants to go home. Physical Exam Vital Signs Date Time Temp Pulse Resp B/P (MAP) Pulse Ox O2 Delivery O2 Flow Rate FiO2 02/22/19 20:34 92 02/22/19 20:34 Room Air 02/22/19 14:15 98.9 61 26 113/71 (85) 02/22/19 09:56 0.5 Intake and Output 02/23/19 07:03 Intake Total 0 ml Balance 0 ml Intake Oral 0 ml # Voids 9 # Bowel Movements 2 General Appearance: No Acute Distress Chest: Other (wound is clean, no infection) Assessment and Plan Problems: (1) Pneumothorax Status: Acute Assessment & Plan: doing fine, wants to go home keep dressing on wound working on placement ARIELLE PHILIP Feb 23, 2019 09:49
[2019-02-23 16:48] VITALS: BP 116/65
[2019-02-24 08:00] VITALS: BP 146/77
--- NOTE | 2019-02-24 10:57 | NUR ---
Occupational Therapy Impression Pt. lying in bed stating, "get out!" upon OT's arrival. Pt. stating that he just wanted to sleep and "no, I'm not getting up for breakfast!" Pt. refusing participation in all activities. Occupational Therapy Goals 1) Pt will be SBA toilet task. 2) Pt will be SBA grooming/hygiene standing. 3) Pt will be Independent with upper body HEP. 4) Pt will be Independent LB dressing. Patient's Goal
--- NOTE | 2019-02-24 12:12 | NUR ---
Speech Therapy Impression Cognitive linguistic evaluation complete. The patient exhibited improved cooperation vs prior attempt, though he continued to frequently respond with "I don't know" when presented with direct evaluation questions or informal interview prompts. Suspect the pt is attempting to mask underlying deficits, as avoidance behaviors increased in correlation with difficulty of assessment items. It is further suspected that the pt's total score was self- limited by his tendency to avoid completing tasks of relative difficulty. 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 Formal report to follow. Recommend access to 24/7 supervision at discharge, continued HH ST, consideration of memory care in LONG TERM environment.
--- NOTE | 2019-02-24 12:15 | NUR ---
Physical Therapy Impression Pt refused all PT interventions this date. PT educated pt on the importance of continued participation in order to maintain/increase strength prior to transition to FDC. Pt continued to refuse. Physical Therapy Goals 1: Pt to complete bed mobility with Parish 2: Pt to complete transfers with SBA and RW 3: Pt to ambulate 150' with SBA and RW 4: Pt to pick up operator object from floor with CGA 5: Pt to ambulate 10' on sloped surface with CGA and RW Patient's Goals
[2019-02-24 16:19] VITALS: BP 132/87
--- NOTE | 2019-02-24 16:35 | SLP EVALUATION SUMMARY REPORT ---
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 The pt was referred for an ST assessment to analyze cognitive linguistic status secondary to staff concerns re: confusion and possible chronic cognitive decline. Primary Medical Dx: Generalized weakness s/p recent hospital admission for pneumothorax Past medical Hx: refer to medical record Prior Level of Function: The pt was resistant to sharing details regarding PLOF, frequently stating I dont know. Per staff and chart review, pt has a caregiver that provides assistance 1x/day. Son is the pts POA, and reports he is arranging for [facility]. COGNITIVE LINGUISTIC ASSESSMENT Overall Summary: Pt exhibits moderate to severe, widespread cognitive linguistic deficits most notably characterized by reduced information processing, disorientation, and short-term memory deficits. Higher level deficits are also inferred. Etiology may be age-related, with home caregiver reporting concern re: gradual decline in cognitive status over the course of the previous year. Cognitive linguistic assessment was completed at the bedside, including informal measures paired with the Herminio Cognitive Assessment (MoCA), Version 7.2. Pt achieved a total score of 6/25 points administered (26/30=WNL), with 5 points omitted due to inability to complete written portion (home caregiver suspects illiteracy). The pt was generally willing to participate in assessment tasks, but simultaneously appeared to be making an effort to mask underlying deficits. He frequently responded to evaluation questions by stating I dont know. Avoidance behaviors increased in correlation with difficulty of assessment items. It is suspected that the pts total score was self-limited by his tendency to avoid completing tasks of relative difficulty. However, cognitive linguistic impairments also appear moderate to severe. The pt was disoriented to temporal concepts (date, time of day), but acknowledged current location and general reason for hospitalization. He exhibited difficulty sustaining attention and comprehending task instructions, often requiring multiple repetitions prior to providing a response. The pt further exhibited significant difficulty with recall, both immediately and following a brief delay. It was difficult to assess the pts ability to solve functional problems, complete executive functioning tasks, and participate in tasks requiring execution of multi-level instructions. He avoided or declined participation in these activities. At this time, the pt appears to be functioning mildly below baseline from a cognitive-linguistic standpoint. Suspect cognitive decline has been gradual vs acute. Cognitive linguistic deficits may impede safe and efficient completion of ADLs and IADLs, including cooking, management of medications, finances, and scheduling. Skilled ST services are warranted in a subacute rehab setting to continue assessment of cognitive linguistic skills and to provide patient and caregiver instruction in strategies to support identified areas of impairment for safe and successful transition to next level of care. RECOMMENDATIONS 1. ST 3x/wk, 2wks 2. Access to 24/ supervision at discharge, possible consideration of memory care placement at [facility]. [facility] PROGNOSIS: Guarded. Resistant to participated, but motivated to d/c from ECF. PLAN OF CARE Short Term Goals 1. Pt will improve purposeful communication via contribution of 3 relevant comments per topic during participation in reminiscence conversations with staff or family members with min cues for task persistence and redirection as needed. 2. Pt will comprehend and execute single level instructions with min assist to improve participation in functional ADLs. 3. Pt will utilize internal strategies with min cues to support recall of 2/2 items of information embedded within a functional activity. Long-Term Goals 1. The patient will demonstrate functional cognitive communication status for safety and maximized independence upon anticipated d/c DE w/ appropriate access to home and community resources. Thank you for this referral. Please call [phone] to contact with any questions or concerns. Tri Norris M.S., [facility])-GERIATRIC ASSISTANT [*] MTDD
[2019-02-25 07:15] VITALS: BP 121/61
--- NOTE | 2019-02-25 09:31 | NUR ---
Physical Therapy Impression Pt seated in chair and fully dressed, eating ice cream. When offered PT visit, pt was initially agreeable to going outdoors, but was only interested if he could go to check his mail etc. Pt was advised that he could go out with assistance of his caregiver (outing pass), but declined this and declines PT treatment at this time. Pt later seen ambulating indep with FWW in hallway near nurse's station with safe technique. Physical Therapy Goals 1: Pt to complete bed mobility with Parish 2: Pt to complete transfers with SBA and RW 3: Pt to ambulate 150' with SBA and RW 4: Pt to sweet pickle maker object from floor with CGA 5: Pt to ambulate 10' on sloped surface with CGA and RW Patient's Goals
--- NOTE | 2019-02-25 12:25 | Medical Nutrition Therapy ---
Nutrition Anthropometrics Height (Inches): 70 (stated) Weight (Pounds): 155 Weight (Calculated Kilograms): 70.562 BMI: 22.3 Yuan Nutrition Score: Adequate Yuan Nutrition Risk Score: 19 Dietary Referral Nutrition Risk Factors: Nutrition Risk Comment: Pt uncooperative, won't say Physical Findings Physical Appearance: WNR Skin Appearance Skin Appearance: Edema Edema Location Modifier: Both Edema Location: Leg Type of Edema: Degree of Edema: Gastrointestinal Symptoms GI Symtoms: Change in Bowel Pattern Tube Present: Bowel Sounds: Recent Bowel Pattern: Stool Characteristics: Nutritional Diagnosis Nutritional Risk Acuity 3: Fair Appetite Nutritional Acuity: 3-Mild Energy Requirement: 1848 (MSJ) Protein Requirement: 70 (1gm/kg) Fluid Requirement: 1750 (25ml/kg) Diet Type: Diet as Tolerated JASON/REG Nutrition Intervention: Cont diet as ordered, HS snack, Between meal supplement Food Likes: half white bread turkey only sandwich/vanilla ice cream/tater tots Diet Comment To RSA: OFFER NUTR SUPPLMENT Nutrition Monitoring & Eval Nutrition Goals: Eat 75-100% Meal Nutrition Follow-Up: Good Intake Nutrition Monitoring: intake, weight RD Patient Assessment Time: [address] Assessment Type: RD Re-Assessment Patient Nutrition Acuity: 3-Mild Follow Up Date: Feb 28, 2019 Nutritional Comment: 02/22 Pt admitted s/p npneumothorax. Pt on JASON. Intake average 70% of small portions. Will offer nutr supplment to increase kcal and protein intake. No accurate pre-admit wt. Ht is stated. Alb 4.1, K+ 3.8 Will cont to monitor and encourage intake. BK 02/25/19: Pt continues on JASON. Average intake last 3 days, 88%. Had non-pitting edema in both legs. No new weight. No new labs. Will continue to monitor intakes, weight. Will encourage intake.ALEXA GOFF Feb 25, 2019 12:25
--- NOTE | 2019-02-25 13:01 | NUR ---
Speech Therapy Impression Focus placed on pt engagement in purposeful conversational exchanges to promote positive environmental integration. Pt contributed an average of 1 relevant comment in response to reminiscence topics including discussion of personal hobbies, life experiences, and occupation. At times, he persistently stated, "I don't know," or "You tell me." At other times, he appeared eager to converse with occurrence of multiple conversational exchanges. Relevant info re: pt preferences and hobbies were discussed with RN, documented, and placed at the bedside to facilitate further socialization with staff members. Cont to rec ongoing HH ST, consideration of memory care in [place] environment.
--- NOTE | 2019-02-25 14:50 | NUR ---
ACTIVITIES: Pt. informed of activities, and Therapeutic Activities Evaluation was done. Pt. refused activities for today and will call if bored and needs activities. Pt. during TAE was involved but more focused on TV.
[2019-02-25 15:31] VITALS: BP 118/58
--- NOTE | 2019-02-25 15:36 | NUR ---
SW attempted to complete MDS with pt, but he refused to participate, SW completed staff assessment. C: pt does appear to have short term memory issues, D: 02, E: pt has rejected care daily, Q: referral already made for pt to DC to [facility] assisted living [facility] with [facility] for .
[2019-02-26 08:00] VITALS: BP 136/54
--- NOTE | 2019-02-26 09:09 | OT ECF NOTE ---
Type of Note: Discharge Note Primary Medical Diagnosis: Generalized weakness s/p hospital admission for pneumothorax Occupational Therapy Evaluation Date: 02/21/19 SUBJECTIVE: Prior Hospitalization: [facility] 02/18/19-02/21/19 Prior Level of Function: Pt resistant to share details regarding PLOF. Frequently stating "I don't know." Per current staff, pt has a caregiver that assists 1x/day. Pt may have used a 4WW at baseline. Prior Living Status: Senior housing-Son is patient's POA and reports he has arranged for [facility] Community Services: No known needs Home Accessibility: All needs on one level, Walk-in shower Equipment Owned: Rollator Medical Complications/Past Medical History: Please refer to EMR Psychosocial Support: Son resides in [place], is POA and assisting with transition to [facility] Pain Scale (0-10): None reported at time evaluation OBJECTIVE: Strength: MMT: Right Left Shoulder Flexion WFL WFL Elbow Flexion WFL WFL Wrist Extension WFL WFL Forward Air Controller/Air Officer WFL WFL (5= normal, 4= good, 3= fair, 2= poor, 1= trace) ROM: Both upper extremities, WFL Sensation: No paraesthesia reported Functional Transfer: Assistive Device: Front wheeled walker Transfer Ability: Modified Independent ADL: Upper body dressing: Assistive device: Upper body dressing ability: Independent Lower body dressing: Assistive device: None Lower body dressing ability: Independent Toileting: Assistive device: None Toileting ability: Independent Grooming/hygiene: Assistive device: None Grooming ability: Independent Bathing: Assistive device: Bathing ability: N/T Standardized Assessment: Misha Index of Activities of Daily Livin/20 upon initial evaluation (02/21/19). 19/20 upon discharge (02/26/19). ASSESSMENT: Mr. Resendez presented to [facility] with generalized weakness s/p hospital admission. He met OT goals that he was agreeable to address. Pt frequently refusing OT tx but demonstrates (I) when allowed to complete tasks on his own terms. Short Term Goals: 1) Pt will be SBA toilet task. GOAL MET 2) Pt will be SBA grooming/hygiene standing. GOAL MET 3) Pt will be Independent with upper body HEP. GOAL NOT MET 4) Pt will be Independent LB dressing. GOAL MET Portainer Operator Goals: Discharge to supervised living with services Patient Goals: Not addressed Rehabilitation Prognosis: Good Barriers to Discharge: Pt motivation and engagement in tasks PLAN: The patient will discharge to [facility] for continued assist with ADLs/IADLs as needed. Thank you for this referral. If you have any questions, concerns, or comments about this report or plan, please contact me at . Cindy Norris MS, OTR/L Occupational Therapist SRINIVAS
--- NOTE | 2019-02-26 10:06 | Hospitalist Depart ---
Discharge Summary Reason for Hosp/Final Diag: (1) Pneumothorax Status: Acute Hospital Course & Plan: doing fine, wants to go home keep dressing on wound working on placement 02/26/19: doing well. mateo po. [facility] to [facility]. Departure Weight (Pounds): 155 Weight (Ounces): 9.0 Condition: Improved PT/OT Follow Up For: ST Evaluation and Treat Discharge Instructions Home Meds No Active Prescriptions or Reported Meds Diet: Regular Activity: As Tolerated, With Walker, No Driving Special Instructions: Follow up with July Lozada. If unavailable, REPLACED BY [facility] [phone] [email or web address] to establish a PCP. Venous Thromboembolism Antithrombotics Is Pt On Any Antithrombotics?: ARIELLE Rueda Feb 26, 2019 10:06
--- NOTE | 2019-02-27 09:49 | PT ECF NOTE ---
Type of Note: Discharge Note Primary Medical Diagnosis: Weakness, pneumothorax Physical Therapy Evaluation Date: 02/21/19 SUBJECTIVE: Prior Hospitalization: [facility] 02/18/19-02/21/19 Prior Level of Function: Pt refuses to give any information about PLOF, per EMR and other staff reports, pt was living in Senior Housing and using a walker for mobility. Plan for the pt to d/c to [facility]. Prior Living Status: Senior housing Community Services: No known needs Home Accessibility: All needs on one level Equipment Owned: Rollator Medical Complications/Past Medical History: See EMR Psychosocial Support: Son, "Fuad" is POA Pain Scale (0-10): Pt reports "I don't know" OBJECTIVE: Strength: Pt refused MMT; functional mobility indicates average of 4-/5 overall. ROM: WFL Sensation: Unknown Bed Mobility: Pt demos indep with this skill having nursing supervision for safety Transfers: Mod indep noted during indep mobility within his room and on the unit. Gait: Mod indep/SBA by nursing with RW x150' Stairs: NT ASSESSMENT: Pt finishing up in shower with nursing staff and ambulating back to room. PT provided timing of gait and discharge assessment of current level of skill. Pt is not interested in further interaction or trng at this time and plans to d/c to [facility] later today. Pt's ambulation speed averages 0.14m/sec indicating a need for a supportive living environment and anticipation of continued benefit from use of walker to aide in safety. Short Term Goals: (partially met) 1: Pt to complete bed mobility with Parish 2: Pt to complete transfers with SBA and RW 3: Pt to ambulate 150' with SBA and RW 4: Pt to sampler pickup object from floor with CGA 5: Pt to ambulate 10' on sloped surface with CGA and RW (refused to address) Shipping And Receiving Clerk Goals: Pt to d/c to [facility] with decreased need of assistance from others. Patient Goals: Non expressed Rehabilitation Prognosis: Fair Barriers for Discharge: Pt very resistant to participation in PT interventions. PLAN: Pt to discharge to [facility] facility for further care. Thank you for this referral. If you have any questions, concerns, or comments about this report or plan, please contact me at . U. Anjali Gonzalez, PT, MPT, OMS MTDD
--- NOTE | 2019-03-06 16:47 | HISTORY AND PHYSICAL ---
DATE OF ADMISSION: February 21, 2019 ADMITTING DIAGNOSIS Resolving pneumothorax. HISTORY OF PRESENT ILLNESS This is an 78-year-old male who presents to the Emergency Department with chest pain and shortness of breath for a couple of days. He had a large left pneumothorax. A Thora-Vent was placed in the ER. The pneumothorax resolved. The Thora-Vent was removed, and x-ray confirmed continued resolution of the pneumothorax. Patient was awaiting placement at an assisted living facility and is being admitted to the extended care unit while he continues to recover and while awaiting placement. Currently denies shortness of breath and chest pain. PAST MEDICAL AND PAST SURGICAL HISTORY Patient denies. CURRENT MEDICATIONS Per medication reconciliation. ALLERGIES No known drug allergies. SOCIAL HISTORY Patient denies smoking cigarettes. REVIEW OF SYSTEMS Per HPI. PHYSICAL EXAMINATION VITAL SIGNS: Per chart. GENERAL: No acute distress. He is stable. HEENT: Pupils are equal and round. Extraocular muscles are intact. Head is atraumatic and normocephalic. NECK: Supple. HEART: Regular rate. LUNGS: Breathing is not labored on room air. ABDOMEN: Soft. SKIN: There is a wound where the Thora-Vent was that is not infected. It is being covered. EXTREMITIES: No pitting edema. PSYCHIATRIC: Affect appropriate. ASSESSMENT This is an 78-year-old male with a recent pneumothorax on the left that has resolved after Thora-Vent placement. Patient is doing well. PLAN He will be given a regular diet. Wound care will be continued. He will receive pulmonary toilet. He is awaiting placement at an assisted living facility. SRINIVAS
== END 2019-02-26 15:30 | disposition home or self-care (01) | DRG 201 ==
LOC: ECF 10:45
PROVIDERS: ADMIT Surgery; ATTEND Surgery
DX: J93.9 Pneumothorax, unspecified (principal)
CPT/HCPCS: 97161; 97165